=== PATIENT | male | born 1975 | race Caucasian/White ===

== ENCOUNTER 2023-01-11 19:59 | Emergency (ER) | payer MEDICAID, SELFPAY ==
[~2023-01-11] VITALS: Ht 170.2 cm; Wt 79.5 kg
[2023-01-11] MEDS ORDERED: KETOROLAC TROMETHAMINE 30 MG/ML VIAL IM ONE (22:45)
[2023-01-11] MEDS ORDERED: KETOROLAC TROMETHAMINE 60 MG/2 ML VIAL IM ONE (22:45)
[2023-01-11 23:00] VITALS: TEMP 97.3
[2023-01-12] MEDS ORDERED: IBUP-1492 PO (00:27)
[2023-01-12 01:06] VITALS: BP 134/75; PULSE 73; RESP 16
== END 2023-01-12 01:10 | disposition home or self-care (01) ==
LOC: EMS 19:59
DX: M16.12 Unilateral primary osteoarthritis, left hip (principal); M25.552 Pain in left hip
CPT/HCPCS: 99283; 73503; 96372; J1885

== ENCOUNTER 2023-04-30 10:26 | Emergency (ER) | payer MEDICAID ==
[~2023-04-30] VITALS: Ht 170.2 cm; Wt 81.8 kg
[~2023-04-30 10:26] MED LIST: IBUP-1492 PO
[2023-04-30 10:31] VITALS: TEMP 99
[2023-04-30 11:14] LABS: INFLUENZA TYPE A NEGATIVE FOR TYPE A (NEGATIVE); INFLUENZA TYPE B NEGATIVE FOR TYPE B (NEGATIVE)
[2023-04-30 11:20] VITALS: BP 141/91; PULSE 76; RESP 18
[2023-04-30] MEDS ORDERED: ACET-66 PO (11:21)
[2023-04-30] MEDS ORDERED: AMOX500C2 PO (11:21)
[2023-04-30] MEDS ORDERED: IBUP-1554 PO (11:21)
[2023-04-30] MEDS ORDERED: DIPH-1130 PO (11:21)
== END 2023-04-30 11:35 | disposition home or self-care (01) ==
LOC: EMS 10:26
DX: J06.9 Acute upper respiratory infection, unspecified (principal); R19.7 Diarrhea, unspecified
CPT/HCPCS: 87804; 99283